=== PATIENT | female | born 1980 | race Asian ===

== ENCOUNTER → 2020-09-18 14:17 | Outpatient (CLI) | payer MEDICAID, SELFPAY ==
[2016-12-12 09:47] VITALS: BMI 32.1
[2020-09-18 16:45] LABS: Follicle Stimulating Hormone 4.2 mIU/mL; Luteinizing Hormone 15.2 mIU/mL; Prolactin 12.5 ng/mL; Thyroid Stim Hormone (TSH) 2.05 uIU/mL (0.358-3.74)
[2020-09-22 03:07] LABS: Chlamydia By Nucleic Acid AMP Negative (Negative)
[2020-09-22 06:25] LABS: Gonococcus By Nucleic Acid AMP Negative (Negative)
[2020-09-22 22:17] LABS: Testosterone Free 1.9 pg/mL (0.0-4.2)
[2020-09-25 15:57] LABS: HPV APTIMA, High Risk Negative (Negative); HPV Reflexed? YES, CHARGE PATIENT
== END ==
PROVIDERS: Visit Provider Student in an Organized Health Care Education/Training Program
DX: N93.9 Abnormal uterine and vaginal bleeding, unspecified (principal); Z12.4 Encounter for screening for malignant neoplasm of cervix
CPT/HCPCS: 36415; 83001; 83002; 84146; 84402; 84443; 87491; 87591; 87624; 88175; G0145

== ENCOUNTER 2021-01-15 06:32 | Day surgery (SDC) | payer MEDICAID, SELFPAY ==
--- NOTE | 2021-01-11 15:54 | PCM.HPOB.BLA ---
History and Physical Date of Admission: 01/15/21 HISTORY OF PRESENT ILLNESS: On 01/11/2021, Narcisa Baer, a 41 year old female 2 0 0 0 2, presented for: Hysteroscopy, D and C for Irregular Bleeding on Reports very heavy period in Nov lasting 2 weeks changing a pad every hour and large clots. Also had a very light period 12/28/20 lasting 7 days. ALLERGIES: No Known Allergies MEDICATIONS HISTORY: Current medications prescribed by our practice are: 1. ibuprofen 600 mg tablet, As Directed PAST HISTORY: Breast/Ovarian/Colon Cancers - Mother ovarian ca, grandmother and auint uterine ca Infections - Chicken pox and HX. OF UTI'S Illnesses - PCOS Accidents - no injuries of consequence History of Abnormal PAPS - Denies Hospitalizations - Childbirth Bicornuate uterus; SURGICAL HISTORY: 1. , January, 2. 12/14/2016 Summer Scarlet Oscar MD MENSTRUAL HISTORY: LMP Known?- Irregular cyclesAmount/Duration - light, Regularity - 7 days, Frequency - variable days, LMP - 12/28/20, Age Onset Menarche - 14 PAST PREGNANCIES: Total Pregnancies - 2; Full Term Pregnancies - 2; Premature - 0; Abortions, Induced - 0; Abortions, Spontaneous - 0; Ectopics - 0; Multiple Births - 0; Living Children - 2 FAMILY HISTORY: Mother - Ovarian Carcinoma; Aunt - Neoplasm of uterus; MaternalGrandparent - Neoplasm of uterus; PaternalAunt - Ovarian Carcinoma; PaternalGrandparent - Neoplasm of lung; SOCIAL HISTORY: Alcohol Use - denies drinking Smoking - Never Drug Use - denies REVIEW OF SYSTEMS: GENERAL - Denies fever, or chills SKIN - Denies skin changes EYES - Denies visual changes EARS - Denies difficulty hearing NOSE - Denies nasal congestion or bleeding MOUTH - Denies sore throat or difficulty swallowing NECK - Denies pain or swelling RESPIRATORY - Denies shortness of breath or wheezing CARDIOVASCULAR - Denies palpitations or chest pain GASTROINTESTINAL - Denies nausea, vomiting, diarrhea, constipation GENITOURINARY - Denies dysuria, frequency of urination, incontinence of urine and irregular bleeding MUSCULOSKELETAL - Denies joint or muscle pain NEUROLOGICAL - Denies localized numbness or weakness PSYCHIATRIC - Denies depression or anxiety ENDOCRINE - Denies heat or cold intolerance, weight loss or gain HEMATO-IMMUNOLOGIC - Denies excesive bleeding with cuts PHYSICAL EXAMINATION BP- 124/70 Sitting, Right arm, regular cuff Temp- 97.6 Taken Orally Weight- 163.60 lbs Height- 61.25 inch BMI:30.72 CONSTITUTIONAL - NAD, well nourished, and well developed SKIN - No rash, lesions, or ulcers HEENT - Normocephalic, PERRLA, EOMI NECK - No nodes, no nuchal rigidity and thyroid normal size and texture LYMPH NODES - Palpation of lymph nodes in neck and groins within normal limits LUNGS - CTA x2 without wheezes, crackles or rales CARDIAC - Regular rate and rhythm without rubs, murmurs, or gallops ABDOMEN - Without hepatosplenomegaly, distention, masses, rebound, or guarding; normal bowel sounds; no hernias EXTREMITIES - No edema or calf tenderness NEUROLOGICAL - Cranial nerves II-XII grossly intact PSYCHIATRIC - A and O to time, place, person, mood and affect DETAILED PELVIC EXAM External Genital Vagina - non-tender without lesions Urethra/Urethral Meatus - non-tender Bladder - non-tender Vagina - vaginal falcon are pink and moist without loss of rugae and no evidence of atropy Cervix - without cervical motion tenderness and has normal size and features without evident lesions Uterus - 5-6 cm in size, mobile and nontender Adnexa - clear without massess or tenderness ASSESSMENT: PLAN BY DIAGNOSIS: 1. Abnormal Uterine And Vaginal Bleeding, Unspecified Heavy irregular bleeding for several months. Attemped US guided EMB in office, unable to complete. Labs were wnl US showing two uteri, one cervix. polycystic ovaries. Plan for US guided D, hysteroscopy. R/B/A discussed. Risks include, but are not limited to: risk of bleeding to the point of tranfusion, injury to surrounding tissue, VTE, indection, ICU admission. 2. Bicornate Uterus
[2021-01-11 17:19] LABS: Hematocrit 39.7 % (37-47); Hemoglobin 12.1 g/dL (12.0-15.0); Mean Corp Hgb Conc 30.5 g/dL (32-36); Mean Corpuscular Hgb 24.3 pg (27.0-32.0); Mean Corpuscular Volume 79.9 fL (81-99); Mean Platelet Vol. 12.2 fl (6.2-12.0); Platelet Count 170 K/mm3 (150-450); RBC Distribution Width CV 13.9 % (11.6-14.6); RBC Distribution Width SD 40.2 fl (35.1-43.9); Red Blood Count 4.97 M/mm3 (4.2-5.4); White Blood Count 4.9 K/mm3 (4.4-11.0)
[2021-01-15] VITALS (8 sets, daily range): BP systolic 97–117; BP diastolic 56–83; PULSE 62–80; RESP 16–18; TEMP 36.1–36.5; O2SAT 98–100; BMI 30.1
[2021-01-15] MEDS: Lactated Ringers 1,000 ML 125 ML IV (06:55)
[2021-01-15 06:57] LABS: Internal QC Validated? YES +Cl - CLEAR BKGD; Pregnancy, Urine Negative Negative
--- NOTE | 2021-01-15 07:56 | OP.PCM_ITS ---
Report of Operation Date of Procedure: 01/15/21 Pre-Operative Diagnosis: Normal uterine bleeding, bicornuate uterus Post-Operative Diagnosis: Normal uterine bleeding, uterine didelphys Surgery/Procedure Performed:: Ultrasound-guided hysteroscopy, dilation and curettage Description of Surgical Findings:: Normal-appearing external genitalia. Vaginal septum. 2 cervices. 2 separate uteri. No endometrial polyp's in either uterus. Type of Anesthesia:: General - Thank you, MAC Anesthesiologist: Donovan Seth Specimen's removed: Left and right endometrial curettings Estimated Blood Loss (mL): 10 cc Fluids Replaced: 700 cc Description of Procedure: Patient taken to the operating room, MAC anesthesia induced. Patient placed in the dorsal lithotomy position and prepped and draped in the usual sterile fashion. Collins retractor used on left vagina, single-tooth tenaculum grasped the anterior lip of left cervix. Cervix sequentially dilated. Ultrasound was started noting to separate endometrial cavities. Hysteroscope placed through cervical canal examination of the endometrial cavity was completed. Needs as above. Curettage completed in a 360 degree manner. Retractors removed and single-tooth tenaculum removed. Attention then turned to the right cavity. Collins retractor placed in the posterior vagina. Single-tooth tenaculum used to grasp the cervix. Cervical os difficult to visualize on initial inspection. Collins retractor removed, small speculum placed in order to better visualize the cervix and cervical os. Allis clamp grams anterior portion of cervix, single- tooth tenaculum removed. Lacrimal duct dilators and small Hegar dilators utilized to dilate the cervix under ultrasound guidance. Allis clamp removed and speculum removed as well. Collins retractor replaced and Allis clamps were placed on the anterior cervix. Hysteroscope placed through cervical canal and visualization of the right endometrial cavity was completed. Findings as above. Hysteroscope removed and curettage completed in a 360 degree manner. Allis clamp removed. Hemostasis noted. Collins retractor removed. Both cervices were noted to be hemostatic at the end of the procedure. At the end of the procedure all needle, lap, sponge counts were correct x3. Urine output: Patient not catheterized. - Complications None
--- NOTE | 2021-01-15 07:57 | DCINST_ITS ---
Discharge Activity: Return to Normal Activity, May Shower May resume sexual activity in: 2 weeks Weight Bearing Status: Weight bearing as tolerated Call your doctor if you observe: Fever of 101 or Higher, Coldness, Increased Pain, Inability to have a bowel movement, Using more than one pad per hour, Shortness of breath, Uncontrolled pain Cleanse incision/area with: Soap & Water Allergies/Adverse Reactions: Allergies No Known Allergies Allergy (Verified 01/15/21 07:02) Medications to take at Discharge NK 01/08/21 Primary Care Physician: Jairo Ramirez DO [Primary Care Provider] - Test Results: Test results from this visit will be discussed in further detail at your follow- up appointment, if applicable. Please Follow Up With: Devora Ribeiro DO When: 2 week post op visit
--- NOTE | 2021-01-15 08:00 | US_ITS ---
STUDY: ULTRASOUND TRANSVAGINAL CLINICAL: Female, 41 years old. Ultrasound guided DC in OR for AUB TECHNIQUE: Transvaginal COMPARISON: None. FINDINGS: Intraoperative imaging provided for ultrasound-guided DTC. US/Intraoperative Ultrasound IMPRESSION: Intraoperative imaging provided for ultrasound guided dilatation and curettage. Electronically Signed: Ray Fang MD at 10:08 EST , Service support ,
--- NOTE | 2021-01-15 08:00 | EMB_PTH ---
PATIENT: ESTHELA PERRY LOC: [facility] [place] U#:[id number] AGE/SX: 41/F ROOM: RE01/15/[address]: Dr. Devora Ribeiro DO : 1980 BED: DIS: 01/15/2021 SPEC #: [id number] RECD: 01/15/21 10:12 STATUS: ABE INÉS #: [id number] BARAK: 01/15/21 08:[address]: Devora Ribeiro DEPT: SURGICAL PATHOLOGY RECD BY: Kristie Marte ENTERED: 01/15/21 10:55 SP TYPE: ENDOM BX/C ALAN DR: Dr. Jairo Ramirez DO Tissues: A - Endometrium, NOS B - Endometrium, NOS Procedures: Surgery Specimen Level IV HEADER OPERATION: Hysteroscopy, dilation and curettage with ultrasound guidance PRE-OP DIAGNOSIS: Bicornate uterine and vaginal bleeding TISSUE SUBMITTED: A - Right side endometrial curettings, B - Left side endometrial curettings MICROSCOPIC DIAGNOSIS A. Right side endometrium, curettings: Mildly disordered proliferative endometrium. B. Left side endometrium, curettings: Mildly disordered proliferative endometrium. AM:raúl 01/18/2021 COMMENT Case has been reviewed in consultation with Dr. Borjas who concurs with the above diagnosis. IDC:[email or web address] MICROSCOPIC DESCRIPTION Slides are reviewed. GROSS DESCRIPTION A - Received in fixative is one container labeled with the patient's name and designated right side endometrial curettings. The specimen consists of multiple fragments of hemorrhagic soft tissue that in aggregate measure 3 x 2.5 x 0.3 cm. The specimen is totally submitted in one cassette. B - Received in fixative is one container labeled with the patient's name and designated left side endometrial curettings. The specimen consists of multiple fragments of hemorrhagic soft tissue that in aggregate measure 3 x 2.5 x 0.3 cm. The specimen is totally submitted in one cassette. / BLANCA:raúl 01/15/21 TC:5 CPT: 91770 x2
[2021-01-15] MEDS: Lactated Ringers 1,000 ML 15 ML IV (09:59)
== END 2021-01-15 12:29 | disposition home or self-care (01) ==
LOC: SDC 06:33 → AC 07:07
PROVIDERS: Anesthesiology; PCP Student in an Organized Health Care Education/Training Program; Referring Provider Student in an Organized Health Care Education/Training Program; Visit Provider Student in an Organized Health Care Education/Training Program
PROC: 0UDB8ZZ Extraction of Endometrium, Via Natural or Artificial Opening Endoscopic (ICD-10-PCS; CPT 58558; principal; 2021-01-15 07:50)
DX: N93.9 Abnormal uterine and vaginal bleeding, unspecified (principal); Q51.28 Other and unspecified doubling of uterus; E28.2 Polycystic ovarian syndrome; Q51.3 Bicornate uterus; Z79.1 Long term (current) use of non-steroidal anti-inflammatories (NSAID)
CPT/HCPCS: 58558; 36415; 76998; 81025; 85027; 86850; 86900; 86901; 87426; 88305; C9803; J7120

== ENCOUNTER 2021-12-20 13:43 | Outpatient (CLI) | payer MEDICAID, SELFPAY ==
[2021-12-24 14:12] LABS: HPV APTIMA, High Risk Negative (Negative)
== END 2021-12-20 23:59 | disposition home or self-care (01) ==
PROVIDERS: PCP Student in an Organized Health Care Education/Training Program; Visit Provider Student in an Organized Health Care Education/Training Program
DX: Z12.4 Encounter for screening for malignant neoplasm of cervix (principal); Q51.10 Doubling of uterus with doubling of cervix and vagina without obstruction
CPT/HCPCS: 87624; 88175; G0145

== ENCOUNTER 2022-01-13 14:42 | Outpatient (CLI) | payer MEDICAID, SELFPAY ==
--- NOTE | 2022-01-13 14:46 | BI_ITS ---
MAMMOGRAPHY - BILATERAL SCREENING REASON FOR EXAM: Female, 42 years old. Routine annual screening examination. PERTINENT HISTORY: Non-contributory. TECHNIQUE: Digital bilateral breast olga (3D mammographic acquisition) in the CC and MLO projections. 2-D mediolateral oblique (MLO) and craniocaudad (CC) views of both breasts were obtained. CAD: Full Field Digital Mammography with Computer Added Detection was performed. COMPARISON: None. Baseline examination. FINDINGS: Breast Composition: The breasts are extremely dense, which lowers the sensitivity of mammography. There are 2 adjacent well-defined nodules in the central lateral aspect of the left breast. The larger nodule measures 7.4 mm. Correlation with ultrasound is recommended. No other significant abnormalities are identified. BI/SCRN MAMM (CAD)W/OLGA BILAT IMPRESSION: There are 2 adjacent well-defined nodules in the central lateral aspect of the left breast. Correlation with ultrasound is recommended. ASSESSMENT CATEGORY: BIRADS Category 0: Incomplete. Need additional imaging evaluation. A letter regarding these results will be sent to the patient by the facility within 30 days. Approximately 10% of breast cancers are not detected by mammography. A normal mammogram should not delay biopsy of a clinically suspicious abnormality. [id number] Electronically Signed: Ray Fang MD at 15:21 EST ,
== END 2022-01-13 23:59 | disposition home or self-care (01) ==
LOC: OPBI 14:43
PROVIDERS: PCP Student in an Organized Health Care Education/Training Program; Visit Provider Student in an Organized Health Care Education/Training Program
DX: Z12.31 Encounter for screening mammogram for malignant neoplasm of breast (principal)
CPT/HCPCS: 77063; 77067

== ENCOUNTER 2022-01-17 12:41 | Outpatient (CLI) | payer MEDICAID, SELFPAY ==
--- NOTE | 2022-01-17 12:44 | US_ITS ---
STUDY: ULTRASOUND BREAST - LEFT REASON FOR EXAM: Female, 42 years old. Abnormal screening mammogram. TECHNIQUE: Axial and longitudinal images of the LEFT breast were performed with a high resolution ultrasound transducer. # OF IMAGES: 12 COMPARISON: Comparison is made with prior mammogram dated 01/13/2022. FINDINGS: LEFT Breast: The mammographic abnormality corresponds to 2, adjacent hypoechoic solid nodules at the 3 o''clock position breast at 3 cm from the nipple. The larger nodule measures 9 mm x 9 mm x 7 mm. Biopsy is recommended. US/Breast Limited Unilateral IMPRESSION: There are 2 adjacent subcentimeter hypoechoic solid nodules at the 3 o''clock position of the breast at 3 cm from the nipple. Biopsy is recommended. ASSESSMENT CATEGORY: BIRADS Category 4: Suspicious - Biopsy Should Be Considered. A letter regarding these results will be sent to the patient by the facility within 30 days. Electronically Signed: Ray Fang MD at 15:44 EST ,
== END 2022-01-17 23:59 | disposition home or self-care (01) ==
LOC: OPUS 12:42
PROVIDERS: PCP Student in an Organized Health Care Education/Training Program; Visit Provider Student in an Organized Health Care Education/Training Program
DX: N63.20 Unspecified lump in the left breast, unspecified quadrant (principal)
CPT/HCPCS: 76642

== ENCOUNTER 2022-01-21 15:58 | Outpatient (CLI) | payer MEDICAID, SELFPAY ==
--- NOTE | 2022-01-21 13:50 | BRBX_PTH ---
PATIENT: ESTHELA PERRY LOC: [facility] U#:[id number] AGE/SX: 42/F ROOM: RE01/21/[address]: Dr. Monroe Mcgarry MD : 1980 BED: DIS: 01/21/2022 SPEC #: [id number] RECD: 01/21/22 15:20 STATUS: ABE INÉS #: [id number] BARAK: 01/21/22 13:[address]: Monroe Mcgarry DEPT: SURGICAL PATHOLOGY RECD BY: Kristie Marte ENTERED: 01/24/22 08:26 SP TYPE: BREAST BX OTHR DR: Dr. Jairo Ramirez, DO Tissues: Left breast, NOS Procedures: Surgery Specimen Level IV HEADER OPERATION: Left breast biopsy PRE-OP DIAGNOSIS: Left breast mass TISSUE SUBMITTED: Left breast tissue MICROSCOPIC DIAGNOSIS Left breast mass, core biopsy: Fibroadenoma. AM:raúl 01/25/2022 MICROSCOPIC DESCRIPTION Slides are reviewed. GROSS DESCRIPTION Received in fixative is one container labeled with the patient's name and designated left breast. The specimen consists of multiple elongated fragments of hankins-yellow fibroadipose tissue that in aggregate measure 2 x 0.5 x 0.1 cm. The entire specimen is submitted in one cassette. / SJ:rg 01/24/2022 TC:5 CPT: 73699
== END 2022-01-21 23:59 | disposition home or self-care (01) ==
LOC: LABSPEC 15:59
PROVIDERS: PCP Student in an Organized Health Care Education/Training Program; Visit Provider Surgery
DX: N63.20 Unspecified lump in the left breast, unspecified quadrant (principal)
CPT/HCPCS: 88305

== ENCOUNTER → 2022-08-12 | Outpatient (CLI) | payer MEDICAID, SELFPAY ==
--- NOTE | 2022-08-12 09:19 | US_ITS ---
STUDY: ULTRASOUND BREAST - LEFT REASON FOR EXAM: Female, 42 years old. Six-month follow-up examination. Prior biopsy. TECHNIQUE: Axial and longitudinal images of the LEFT breast were performed with a high resolution ultrasound transducer. # OF IMAGES: 20 COMPARISON: Comparison is made with prior mammogram dated 01/13/2022 and prior ultrasound of the left breast dated 01/17/2022. FINDINGS: LEFT Breast: At the 3 o''clock position in the breast at 3 cm from nipple, there are 2 adjacent hypoechoic solid nodules. The 8mm by 4.5 mm x 5.2 mm nodule has a tissue clip marker within it. US/Breast Limited Unilateral IMPRESSION: Stable examination. Prior biopsy. ASSESSMENT CATEGORY: BIRADS Category 2: Benign. A letter regarding these results will be sent to the patient by the facility within 30 days. Electronically Signed: Ray Fang MD at 12:50 EDT ,
== END | disposition home or self-care (01) ==
LOC: OPUS 09:18
PROVIDERS: PCP Student in an Organized Health Care Education/Training Program; Visit Provider Surgery
DX: N63.20 Unspecified lump in the left breast, unspecified quadrant (principal)
CPT/HCPCS: 76642

== ENCOUNTER → 2025-01-20 | Outpatient (CLI) | payer OTHER, SELFPAY ==
--- NOTE | 2025-01-20 11:38 | US_ITS ---
PROCEDURE: BREAST LIMITED UNILATERAL REASON FOR EXAM: Follow-up for status post left breast biopsy. TECHNIQUE: Targeted left breast ultrasound. COMPARISON: Comparison is made with prior ultrasound of the left breast dated August 12, 2022. FINDINGS: LEFT: Left breast ultrasound was targeted to the 3 o'clock position of the left breast.. There is a 1.1 cm x 1.1 cm x 0.8 cm well-defined hypoechoic nodule at the 3 o'clock position of the breast at 3 cm from the nipple. This has increased minimally in size as compared to prior study. It previously measured 9 mm x 9 mm x 5 mm. Adjacent to this, there is a 7 mm x 5 mm x 7 mm well-defined hypoechoic nodule. This is unchanged. US/Breast Limited Unilateral IMPRESSION: Minimally increased in size of the previously seen nodule at the 3 o'clock posi tion of the breast at 3 cm from the nipple presently measuring 1.1 cm x 1.1 cm x 0.8 cm. It previously measured 0.8 cm x 0.9 cm x 0.5 cm. Follow-up code: Routine Follow-up Reading Location: [place] [id number]
--- NOTE | 2025-01-20 11:45 | BI_ITS ---
PROCEDURE: DIAG MAMM W/CAD, BILAT REASON FOR EXAM: History of prior left ultrasound-guided breast biopsy. No family history. TECHNIQUE: Bilateral diagnostic digital breast tomosynthesis with 2D and 3D images. Computer aided detection. COMPARISON: Prior exam(s) dating back to outside examination dated January 13, 2022.. FINDINGS: The breasts are extremely dense which lowers the sensitivity of mammography. A tissue clip marker is seen from prior biopsy is seen within the nodular density in the central portion of the left breast measuring 1.3 cm x 1 cm in the central lateral aspect of the left breast. Stable right axillary lymph nodes. BI/DIAG MAMM W/CAD, BILAT IMPRESSION: Status post biopsy of a 1.3 cm nodule in the central lateral aspect of the left breast. A tissue clip marker is seen within it. Sonographic correlation recommended. BI-RADS 0: INCOMPLETE - NEED ADDITIONAL IMAGING EVALUATION. Follow-up code: Ultrasound Recommended Reading Location: [place] [address]
== END | disposition home or self-care (01) ==
LOC: OPUS 11:38
PROVIDERS: PCP Student in an Organized Health Care Education/Training Program; Referring Provider Surgery; Visit Provider Surgery
DX: N63.20 Unspecified lump in the left breast, unspecified quadrant (principal); R92.1 Mammographic calcification found on diagnostic imaging of breast
CPT/HCPCS: 76642; 77062; 77066; G0279